=== PATIENT | male | born 1975 | race Caucasian/White ===

== ENCOUNTER 2023-03-10 17:36 | Outpatient (REF) | payer MEDICARE, MEDICAID, SELFPAY ==
--- OUTSIDE RECORDS SUMMARY | 2023-03-10 17:45 | XMS_ITS | CCD ---
Author Name Unknown Address [address] [place] [address] [phone] Organization Unknown Address [address] [place] [address] [id number] Care Team Providers Care Beaver Trapper Name Role Phone CRISTOFER LEE Attending Physician [phone] Vital Signs Unknown or Not Available. Allergies Unknown or Not Available. Procedures Unknown or Not Available. History of Immunizations Unknown or Not Available. Problems Unknown or Not Available. Results Unknown or Not Available. Active Medications Unknown or Not Available. Medications Administered During Visit Unknown or Not Available. Encounters Encounter Diagnosis Diagnosis Code Start Date Heart murmur [id number] 05/26/2022 Social History Unknown or Not Available. Patient Decision Aids Unknown or Not Available. Discharge Instructions You were admitted to [facility] on 05/26/2022 12:54 with a principal diagnosis of Cardiac murmur, unspecified You were discharged from [facility] on 05/26/2022 12:54 Should you have any questions prior to discharge, please contact a member of your healthcare team. If you have left the hospital and have any questions, please contact your primary care physician. Chief Complaint and Reason For Visit Unknown or Not Available. Function Status Unknown or Not Available. Plan of Care Unknown or Not Available. Referral/Transition of Care Unknown or Not Available.
[2023-03-10 20:16] LABS: ALT 26 U/L (16-63); AST 14 U/L (15-37); Albumin 3.6 g/dL (3.4-5.0); Alkaline Phosphatase 30 U/L (46-116); Anion Gap 8.4 mmol/L (3-11); BUN 17 mg/dL (7-18); CO2 25.6 mmol/L (21.0-32.0); CREATININE 0.7 mg/dL (0.70-1.30); Calculated LDL 76 mg/dL (<100); Chloride 106 mmol/L (98-107); Cholesterol 126 mg/dL (<200); Glucose 119 mg/dL (74-106); HDL Cholesterol 36 mg/dL (40-60); Potassium 4.2 mmol/L (3.5-5.1); Sodium 140 mmol/L (136-145); Total Protein 7.3 g/dL (6.4-8.2); Triglyceride 74 mg/dL (<150)
[2023-03-10 20:18] LABS: Hemoglobin A1C 5.9 % (<5.7)
[2023-03-10 20:35] LABS: Bilirubin, Total 0.3 mg/dL (0.2-1.0)
== END 2023-03-10 17:37 | disposition home or self-care (01) ==
LOC: NCHCN 17:36
PROVIDERS: PCP Physician Assistant Medical; Visit Provider Nurse Practitioner Family
DX: R73.03 Prediabetes (principal); R79.89 Other specified abnormal findings of blood chemistry
CPT/HCPCS: 80053; 80061; 83036

== ENCOUNTER 2024-09-07 22:10 | Outpatient (REF) | payer MEDICARE, MEDICAID, SELFPAY ==
[2024-09-07 20:46] LABS: ALT 32 U/L (16-63); AST 13 U/L (15-37); Albumin 4.3 g/dL (3.4-5.0); Alkaline Phosphatase 37 U/L (46-116); Anion Gap 8.8 mmol/L (3-11); BUN 23 mg/dL (7-18); Bilirubin, Total 0.6 mg/dL (0.2-1.0); CO2 26.2 mmol/L (21.0-32.0); Calcium 9.0 mg/dL (8.5-10.1); Calculated LDL 90 mg/dL (<100); Chloride 107 mmol/L (98-107); Cholesterol 146 mg/dL (<200); Estimated GFR 109.85 (mL/min/1.73m2); Glucose 96 mg/dL (74-106); HDL Cholesterol 45 mg/dL (>or=40); Potassium 4.4 mmol/L (3.5-5.1); Sodium 142 mmol/L (136-145); Total Protein 7.5 g/dL (6.4-8.2); Triglyceride 59 mg/dL (<150)
[2024-09-07 22:03] LABS: COMMENT (LAB VIEW ONLY) 215.54 mg/dL; Microalb ug/mg Crea 9.4 ug/mg Cr
== END 2024-09-07 22:11 | disposition home or self-care (01) ==
LOC: NCHCN 22:10
PROVIDERS: PCP Physician Assistant Medical; Visit Provider Nurse Practitioner Family
DX: E11.9 Type 2 diabetes mellitus without complications (principal)
CPT/HCPCS: 80053; 80061; 82043; 82570